=== PATIENT | male | born 1960 | race Hispanic/Latino ===

== ENCOUNTER 2017-04-24 06:10 | Observation (INO) | payer MEDICAID ==
[2017-04-16 09:07] VITALS: BMI 34.0
[2017-04-24] MEDS ORDERED: ceFAZolin IV 2 gm in Dextrose 0 GM/0 ML BAG IVPB ONE (07:20)
[2017-04-24] MEDS ORDERED: Lactated Ringer's 1,000 ML IV ONE ×7 (07:44→19:00)
[2017-04-24] MEDS: Lidocaine 1% Inj (20ml) ONE ×2 (07:45→08:06)
[2017-04-24] MEDS: Bupivacaine-Epi 0.25%-1:200,000 PF Inj ONE ×2 (07:45→08:06)
[2017-04-24] MEDS ORDERED: Midazolam 2 MG/2 ML VIAL ONE (07:47)
[2017-04-24] MEDS ORDERED: Rocuronium 10 mg/ml (5 ml) ONE ×3 (07:47→11:21)
[2017-04-24] MEDS ORDERED: White Petrolatum/Mineral Oil Ophth Oint(3.5 gm) ONE (07:47)
[2017-04-24] MEDS ORDERED: Propofol 10 mg/ml Inj (20 ML) ONE (07:47)
[2017-04-24] MEDS ORDERED: Vancomycin 1 gm/D5W 200 ml 1 GM/200 ML BAG IVPB ONE (08:19)
[2017-04-24] MEDS ORDERED: HYDROmorphone 0.5 mg/0.5 ml ISec IVP PRN ×3 (10:37→14:30)
[2017-04-24] MEDS ORDERED: Bupivacaine HCl 0.5% PF (10 ml) Inj ONE (12:04)
[2017-04-24] MEDS ORDERED: BUPIVACAINE 0.125%/0.9% NACL 600 ML IJ ONE (12:16)
[2017-04-24] MEDS ORDERED: Morphine 4 MG/ML VIAL ONE ×2 (13:51→14:19)
--- NOTE | 2017-04-24 14:46 | PCM.SURG1 ---
Surgeon's Initial Post Op Note - Surgeon's Notes Surgeon: Nicky Fire Prevention Inspector: PGY4 Type of Anesthesia: General Endo Pre-Operative Diagnosis: Recurrent incisional hernia, diastasis recti Operative Findings: Recurrent incisional hernia, diastasis recti Post-Operative Diagnosis: Recurrent incisional hernia, diastasis recti Operation Performed: Robotic assisted laparoscopic repair of recurrent incisional hernia with component separation Specimen/Specimens Removed: N/A Estimated Blood Loss: EBL {In ML}: 50 Blood Products Given: N/A Drains Used: Vikas Post-Op Condition: Good Date of Surgery/Procedure: 04/24/17 Time of Surgery/Procedure: 08:15
[2017-04-24] MEDS: Lactated Ringer's 1,000 ML IV SCH (23:30)
[2017-04-25] MEDS: Lactated Ringer's 1,000 ML IV SCH (04:04)
[2017-04-25 07:45] LABS: CHLORIDE 104 mmol/L (98-107); POTASSIUM 3.7 mmol/L (3.6-5.2); SODIUM 138 mmol/L (132-148)
[2017-04-25 07:48] LABS: BLOOD UREA NITROGEN 16 mg/dL (9-20); CARBON DIOXIDE 25 mmol/L (22-30); GFR AFRICAN-AMERICAN > 60
[2017-04-25 07:49] LABS: CALCIUM 8.5 mg/dl (8.6-10.4); GLUCOSE,RANDOM 107 mg/dL (75-110)
[2017-04-25 11:33] LABS: BASO % 0.3 % (0.0-2.0); EOS # 0.1 K/uL (0.0-0.7); EOS % 1.1 % (0.0-4.0); HEMATOCRIT 37.9 % (35.0-51.0); LYMPH # 1.8 K/uL (1.0-4.3); LYMPH % 23.7 % (20.0-40.0); MEAN CELL VOLUME 86.7 fL (80.0-94.0); MEAN CORPUSCULAR HEMOGLOBIN 29.8 pg (27.0-31.0); MEAN CORPUSCULAR HGB CONC 34.4 g/dL (33.0-37.0); MEAN PLATELET VOLUME 7.9 fL (7.2-11.7); MONO # 0.6 K/uL (0.0-0.8); MONO % 7.3 % (0.0-10.0); RED CELL DISTRIBUTION WIDTH 14.8 % (11.5-14.5); WHITE BLOOD COUNT 7.6 K/uL (4.8-10.8)
--- NOTE | 2017-04-25 21:43 | CP.PCM.PN ---
<Jerry Martinez - Last Filed: 04/25/17 21:39> Subjective - Date & Time of Evaluation Date of Evaluation: 04/25/17 Time of Evaluation: 14:00 - Subjective Subjective: SURGERY PROGRESS NOTE FOR DR. PRICE 56M seen and examined at bedside. Patient states pain is controlled, denies nausea, vomiting, fever, tolerating diet. ambulating. Objective - Vital Signs/Intake and Output Vital Signs (last 24 hours): Temp Pulse Resp BP Pulse Ox 98.1 F 94 H 20 132/87 99 04/25/17 15:30 04/25/17 15:30 04/25/17 15:30 04/25/17 17:44 04/25/17 15:30 Intake and Output: 04/25/17 04/26/17 18:59 06:59 Intake Total 200 Output Total 900 Balance -700 - Medications Medications: Current Medications Acetaminophen (Tylenol 325mg Tab) 975 mg PO Q8 [facility] Last Admin: 04/25/17 21:29 Dose: 975 mg Carvedilol (Coreg) 12.5 mg PO BID [facility] Last Admin: 04/25/17 17:44 Dose: 12.5 mg Heparin Sodium (Porcine) (Heparin) 5,000 units SC Q12 [facility] Last Admin: 04/25/17 21:29 Dose: 5,000 units Hydrochlorothiazide (Hydrodiuril) 25 mg PO DAILY [facility] Last Admin: 04/25/17 09:28 Dose: 25 mg BUPIVACAINE 0.125%/0.9% NACL (Bupivacaine-Ns 0.125% On-Q Tie Man) 600 mls @ 4 mls/ hr IJ ONCE ONE Stop: 04/30/17 18:15 Loratadine (Claritin) 10 mg PO DAILY [facility] Last Admin: 04/25/17 09:30 Dose: 10 mg Losartan Potassium (Cozaar) 100 mg PO DAILY [facility] Last Admin: 04/25/17 09:28 Dose: 100 mg Ondansetron HCl (Zofran Inj) 4 mg IVP Q4 PRN PRN Reason: Nausea/Vomiting Pneumococcal Polyvalent Vaccine (Pneumovax 23 Vaccine) 0.5 ml IM .ONCE ONE Stop: 04/26/17 10:01 Rosuvastatin Calcium (Crestor) 5 mg PO HS [facility] Last Admin: 04/25/17 21:29 Dose: 5 mg Sertraline HCl (Zoloft) 150 mg PO HS [facility] Last Admin: 04/25/17 21:29 Dose: 150 mg - Labs Labs: 04/25/17 11:18 04/25/17 06:39 - Constitutional Appears: Non-toxic, No Acute Distress - Respiratory Exam Respiratory Exam: Clear to Ausculation Bilateral, NORMAL BREATHING PATTERN - Cardiovascular Exam Cardiovascular Exam: REGULAR RHYTHM, +S1, +S2 - GI/Abdominal Exam GI & Abdominal Exam: Soft. absent: Distended, Firm, Guarding, Rigid, Tenderness Additional comments: dressing CDI. On-q ball in place. drain 162cc/24hrs serosang Assessment and Plan - Assessment and Plan (Free Text) Assessment: 56M s/p robotic incisional hernia repair POD1 Plan: - ADAT - Monitor incisions - DC alvarado -DVT/GI Ppx Discussed with Dr. Nicky Martinez, pGY2 <Michael Price - Last Filed: 04/28/17 18:30> Objective - Vital Signs/Intake and Output Vital Signs (last 24 hours): Temp Pulse Resp BP Pulse Ox 97.5 F L 84 17 130/71 95 04/26/17 07:10 04/26/17 07:10 04/26/17 07:10 04/26/17 09:07 04/26/17 07:10 - Labs Labs: 04/25/17 11:18 04/25/17 06:39 Attending/Attestation - Attestation I have personally seen and examined this patient.: Yes I have fully participated in the care of the patient.: Yes I have reviewed all pertinent clinical information, including history, physical exam and plan: Yes Notes (Text): 04/28/17 18:29 Pt was seen and examined at bedside Agree with above note and assessment Pt is s/p Robotic Component separation bilaterally and Incisional hernia repair and diastatis of recti repair OoB to walk DC plan
[2017-04-26 08:39] VITALS: PULSE 84; RESP 17; TEMP 97.5; O2SAT 95
--- NOTE | 2017-04-26 08:44 | CP.PCM.DIS ---
Provider - Provider Date of Admission: 04/24/17 14:31 Attending physician: Michael Saunders MD Time Spent in preparation of Discharge (in minutes): 40 Hospital Course - Lab Results Lab Results: Most Recent Lab Values WBC 7.6 K/uL (4.8-10.8) 04/25/17 11:18 RBC 4.37 Mil/uL (4.40-5.90) L 04/25/17 11:18 Hgb 13.0 g/dL (12.0-18.0) 04/25/17 11:18 Hct 37.9 % (35.0-51.0) 04/25/17 11:18 MCV 86.7 fL (80.0-94.0) 04/25/17 11:18 MCH 29.8 pg (27.0-31.0) 04/25/17 11:18 MCHC 34.4 g/dL (33.0-37.0) 04/25/17 11:18 RDW 14.8 % (11.5-14.5) H 04/25/17 11:18 Plt Count 207 K/uL (130-400) 04/25/17 11:18 MPV 7.9 fL (7.2-11.7) 04/25/17 11:18 Neut % (Auto) 67.6 % (50.0-75.0) 04/25/17 11:18 Lymph % (Auto) 23.7 % (20.0-40.0) 04/25/17 11:18 Nolan % (Auto) 7.3 % (0.0-10.0) 04/25/17 11:18 Eos % (Auto) 1.1 % (0.0-4.0) 04/25/17 11:18 Baso % (Auto) 0.3 % (0.0-2.0) 04/25/17 11:18 Neut # 5.1 K/uL (1.8-7.0) 04/25/17 11:18 Lymph # 1.8 K/uL (1.0-4.3) 04/25/17 11:18 Nolan # 0.6 K/uL (0.0-0.8) 04/25/17 11:18 Eos # 0.1 K/uL (0.0-0.7) 04/25/17 11:18 Baso # 0.0 K/uL (0.0-0.2) 04/25/17 11:18 Sodium 138 mmol/L (132-148) 04/25/17 06:39 Potassium 3.7 mmol/L (3.6-5.2) 04/25/17 06:39 Chloride 104 mmol/L (98-107) 04/25/17 06:39 Carbon Dioxide 25 mmol/L (22-30) 04/25/17 06:39 Anion Gap 12 (10-20) 04/25/17 06:39 BUN 16 mg/dL (9-20) 04/25/17 06:39 Creatinine 0.9 MG/DL (0.8-1.5) 04/25/17 06:39 Est GFR ( Amer) > 60 04/25/17 06:39 Est GFR (Non-Af Amer) > 60 04/25/17 06:39 Random Glucose 107 mg/dL (75-110) 04/25/17 06:39 Calcium 8.5 mg/dl (8.6-10.4) L 04/25/17 06:39 Blood Type O POSITIVE 04/24/17 06:50 Antibody Screen Negative 04/24/17 06:50 - Hospital Course Hospital Course: 56M presented to hospital for elective robotic incisional hernia repair. Operation was uneventful and patient tolerated post-op care well. Patients pain was controlled with On-Q anesthetic ball. Diet was advanced and patient tolerated. Patient did not require any opioid medication inpatient. Discharge Exam - Head Exam Head Exam: ATRAUMATIC - Respiratory Exam Respiratory Exam: Clear to PA & Lateral, NORMAL BREATHING PATTERN - Cardiovascular Exam Cardiovascular Exam: REGULAR RHYTHM, +S1, +S2 - GI/Abdominal Exam GI & Abdominal Exam: Soft. absent: Firm, Guarding, Rebound, Rigid, Tenderness Additional comments: Drain in place, serosanguinous output - Neurological Exam Neurological exam: Alert, Oriented x3 - Psychiatric Exam Psychiatric exam: Normal Affect, Normal Mood - Skin Skin Exam: Dry, Intact, Normal Color, Warm Discharge Plan - Follow Up Plan Condition: GOOD Disposition: HOME/ ROUTINE Instructions: Incisional Hernia (DC) Additional Instructions: 1) Please follow up with Dr. Saunders in 10 weeks upon discharge 2) Please take prescriptions as directed. Prescriptions have been sent to Dr. Saunders's office. 3) No heavy lifting 4) Can shower, but no bathing 5) Drain will be removed outpatient upon follow up Referrals: Michael Saunders MD [Staff Provider] -
[2017-04-26 09:09] VITALS: BP 130/71
[2017-04-26] MEDS ORDERED: Pneumococcal 23-Valent Vaccine IM ONE (10:00)
--- NOTE | 2017-04-29 04:05 | OP ---
PROCEDURE DATE: 04/24/2017 PREOPERATIVE DIAGNOSES: 1. Recurrent incisional hernia. 2. Diastasis of recti. 3. Morbid obesity. 4. Possible postoperative adhesion. POSTOPERATIVE DIAGNOSES: 1. Recurrent incisional hernia. 2. Diastasis of recti. 3. Morbid obesity. 4. Possible postoperative adhesion. PROCEDURES DONE: 1. Robotic bilateral component separation with transverse abdominis release bilaterally. 2. Robotic incisional hernia repair with mesh. 3. Robotic diastasis of recti repair with mesh. 4. Robotic extensive lysis of adhesion. 5. Robotic enterorrhaphy. 6. ON-Q pain catheter pump placement. 7. Removal of part of old mesh. SURGEON: Michael Saunders MD INORGANIC CHEMISTRY PROFESSOR: AGUSTINA Eisenberg and Chintan Begreron, PGY-4 resident. TYPE OF ANESTHESIA: General endotracheal tube anesthesia. ESTIMATED BLOOD LOSS: Around 50 mL. DRAINS: A 15-German Vikas drain was placed in the intramuscular compartment. COMPLICATIONS: None. PATHOLOGY: The part of the old mesh was sent for the pathology. INTRAOPERATIVE FINDINGS: The patient had extensive adhesion of the small bowel loop to the previously placed mesh as well as omentum and the colon to the anterior abdominal wall and the patient had large defect between the previous umbilical hernia repair and at the diastasis of recti. The patient also had large diastasis of recti of approximately 3 cm or more starting from the fifth sternum up to the umbilicus. On intraoperative steps, this 56-year-old male who was diagnosed with recurrent incisional hernia just above the previous robotic umbilical hernia repair and the patient also had a large diastasis of the recti and the patient is also morbidly obese. The patient was consented for the robotic component separation as well as incisional hernia repair and the diastasis of recti repair. DESCRIPTION OF PROCEDURE: The patient was brought to the OR, placed supine on the operating table. After induction of the anesthesia, the Daly catheter as well as NG tube was placed and the right upper quadrant 5-mm incision was made using the Visiport technique. Peritoneal cavity was entered, Pneumo was created and the first extensive lysis of adhesion was done with electroscope as well as with robot. The small bowel was firmly adhered to the previously placed mesh as well as to anterior abdominal wall. During the enterolysis, the serosal tear of the small bowel was identified and all the serosal tear of the small bowel approximately 5 to 6 cm length was repaired robotically with 3-0 Vicryl suture. Serosal tear was expected incidental occurrence due to firm adhesions. Now, the defect was identified and first right-sided dissection was done and the dissection was started at the edge of the hernial defect as well as at the posterior rectus sheath and the dissection was carried down in the retrorectus space. The linea semilunaris was identified and transverse abdominis muscle was also identified superiorly and the transverse abdominis muscle was divided medial to the neurovascular bundle and the transverse abdominis muscles as well as the fascia was divided completely all the way down from the costal margin up to the anterior superior iliac spine on the right side and the posterior rectus sheath was completely mobilized up to the flank. Now, the robot was undocked and the similar port was placed on the right side and the robot was docked on the right side to do the left side dissection. First, hernial edge incision was made, retrorectus dissection was done and dissection was carried down up to the linea semilunaris and transverse abdominis muscle superiorly. The transverse abdominis muscle was divided medial to the neurovascular bundle all the way top from the costal margin up to the anterior superior iliac spine and after that, the posterior rectus sheath was mobilized all the way down up to the left flank. Now, the old mesh was also firmly adhered and that was also divided and the previously placed Prolene suture was also taken out and now the reapproximation of defect was done starting from the lower abdominal wall approximately 5 cm below the umbilicus and the defect was closed in the midline with 0 Prolene. Now, the rectus abdominis muscles repair was closed with 0-PDS continuous suture in two layers. After repair of the incisional hernia as well as the repair of the diastasis of recti, approximately 35 x 15 cm large mesh was placed and mesh was then blunted and the mesh was tacked with tacker. After that, the posterior rectus sheath was closed in the midline and after that, the ON-Q pain catheter pump was placed and the catheter was positioned at the neurovascular bundle and a 19-German Vikas drain was placed in the intramuscular compartment and drain was secured to the skin. All the robotic camera port was taken out under vision and the Pneumo was deflated. The part of the old mesh was sent to the table for pathology. After that, all the port was sutured in one layer with 4-0 Monocryl and dry sterile dressing was applied. The patient tolerated the procedure well. Count of the instrument was correct. There was no apparent complication. The patient was extubated in OR, sent to the postanesthesia care unit in stable condition. Approximately 5 hours was taken to do this procedure completely. Michael Saunders MD MTDChiquita
== END 2017-04-26 15:07 | disposition home or self-care (01) ==
LOC: C.SDS 06:10 → C.9S 14:31 → C.6T 19:51
PROVIDERS: ADMIT Surgery Surgical Critical Care; ATTEND Surgery Surgical Critical Care
DX: K43.2 Incisional hernia without obstruction or gangrene (principal); K42.9 Umbilical hernia without obstruction or gangrene; E66.01 Morbid (severe) obesity due to excess calories
CPT/HCPCS: 36415; 49565; 49568; 49585; 80048; 85025; 86850; 86900; C1781; G0378; J1644; J2001; J2250; J2270; J2405; J2704; J3010; J3370; J7120

== ENCOUNTER 2017-05-06 11:27 | Emergency (ER) | payer MEDICAID ==
[2017-05-06 11:28] VITALS: BMI 34.0
[2017-05-06 11:37] VITALS: RESP 18; TEMP 98.5
--- NOTE | 2017-05-06 12:07 | C.PDOC ---
History Of Present Illness A 56 year old male, whose past medical history includes hiatal hernia, hypertension, hypercholesterolemia, fractures, and depression, presents to the emergency department for a umbilical hernia repair by Dr. Gillespie on and he wants to get he wound drainage tube removed today. The patient states he is scheduled to get the tube removed tomorrow at Dr. Gillespie's office, but he can not wait because he feels weak, feverish, and can not sleep. The patient denies any chest pain, shortness of breath, nausea, or any other complaints at this time. Time Seen by Provider: 05/06/17 11:40 Chief Complaint (Nursing): Wound Check History Per: Patient History/Exam Limitations: no limitations Quality Of Symptoms: Itching Past Medical History Vital Signs: Last Vital Signs Temp 98.5 F 05/06/17 14:33 Pulse 80 05/06/17 14:33 Resp 18 05/06/17 14:33 BP 124/66 05/06/17 14:33 Pulse Ox 99 05/06/17 14:38 - Medical History PMH: Depression, Fractures, Hiatal Hernia, HTN, Hypercholesterolemia Denies: Chronic Kidney Disease Surgical History: Endoscopy - [facility] Procedures INDIVID PSYCHOTHERAP NEC (02/11/13) OTHER GROUP THERAPY (02/11/13) Family History: States: No Known Family Hx - Social History Hx Alcohol Use: Yes (sober since January 2013) Hx Substance Use: No Review Of Systems Except As Marked, All Systems Reviewed And Found Negative. Constitutional: Positive for: Fever, Weakness Cardiovascular: Negative for: Chest Pain Respiratory: Negative for: Shortness of Breath Gastrointestinal: Negative for: Nausea Physical Exam - Physical Exam Appears: Well, No Acute Distress Skin: Normal Color, Warm, Dry Eye(s): bilateral: Normal Inspection, PERRL, EOMI Nose: Normal Throat: Normal Neck: Normal Cardiovascular: Rhythm Regular Respiratory: Normal Breath Sounds Gastrointestinal/Abdominal: Bowel Sounds, Soft, Tenderness, Other (Post operative scar from drainange that this erythematous ) Back: Normal Inspection Extremity: Normal ROM ED Course And Treatment - Laboratory Results Result Diagrams: 05/06/17 12:59 05/06/17 12:59 O2 Sat by Pulse Oximetry: 99 Medical Decision Making Medical Decision Making: Treatment Plan: -- CBC -- Labs -- IV Fluids, Vancomycin -- Saline Lock Progress Notes: Patient was seen by surgical scrub technologist, who discussed cased with Dr. Saunders and the patient will be admitted for IV antibiotic under Dr. Saunders service. Patient was started on Vanco IV, but he refused to be admitted and he refused to complete IV Vancomycin. Patient sts he wants to go home, requests Rx for antibiotic and sts he will f/u with in his office. Disposition - Disposition Referrals: Michael Saunders MD [Staff Provider] - Disposition: AGAINST MEDICAL ADVICE Disposition Time: 14:37 Condition: STABLE Additional Instructions: Follow up with your Surgeon within 1-2 days. Return to Ed immediately if feel worse. Prescriptions: Clindamycin [Cleocin] 300 mg PO Q6 #28 cap Instructions: Acute Wound Care (ED) Forms: [facility] (Mongolian) - Clinical Impression Clinical Impression: Infection of skin - Scribe Statement The provider has reviewed the documentation as recorded by the Scribe Sonali Hunter All medical record entries made by the Royal[employer] were at my direction and personally dictated by me. I have reviewed the chart and agree that the record accurately reflects my personal performance of the history, physical exam, medical decision making, and the department course for this patient. I have also personally directed, reviewed, and agree with the discharge instructions and disposition.
[2017-05-06] MEDS ORDERED: Sodium Chloride 0.9% 1,000 ML IV STA (12:38)
[2017-05-06] MEDS ORDERED: Vancomycin 1 GM 1 GM/250 ML BAG IV STA (12:39)
[2017-05-06 13:05] LABS: BASO # 0.1 K/uL (0.0-0.2); BASO % 0.8 % (0.0-2.0); EOS # 0.3 K/uL (0.0-0.7); EOS % 4.1 % (0.0-4.0); HEMATOCRIT 33.1 % (35.0-51.0); LYMPH # 1.6 K/uL (1.0-4.3); LYMPH % 19.5 % (20.0-40.0); MEAN CELL VOLUME 86.5 fL (80.0-94.0); MEAN CORPUSCULAR HGB CONC 33.5 g/dL (33.0-37.0); MEAN PLATELET VOLUME 7.3 fL (7.2-11.7); MONO # 0.4 K/uL (0.0-0.8); MONO % 5.3 % (0.0-10.0); RED CELL DISTRIBUTION WIDTH 14.5 % (11.5-14.5); WHITE BLOOD COUNT 8.1 K/uL (4.8-10.8)
[2017-05-06] MEDS ORDERED: Vancomycin 1 GM 1 GM/250 ML BAG IVPB ONE (13:12)
[2017-05-06 13:14] LABS: ALB/GLOB RATIO 0.9 (1.0-2.1); ALKALINE PHOSPHATASE 96 U/L (38-126); ALT/SGPT 29 U/L (21-72); AST/SGOT 21 U/L (17-59); BILIRUBIN,TOTAL 0.4 mg/dL (0.2-1.3); BLOOD UREA NITROGEN 20 mg/dL (9-20); CALCIUM 8.6 mg/dl (8.6-10.4); CARBON DIOXIDE 23 mmol/L (22-30); CHLORIDE 106 mmol/L (98-107); GFR AFRICAN-AMERICAN > 60; GLUCOSE,RANDOM 96 mg/dL (75-110); POTASSIUM 4.1 mmol/L (3.6-5.2); SODIUM 140 mmol/L (132-148); TOTAL PROTEIN 6.6 g/dL (6.3-8.3)
[2017-05-06 14:34] VITALS: BP 124/66; PULSE 80
[2017-05-06 14:38] VITALS: O2SAT 99
[2017-05-06] MEDS ORDERED: Piperacillin/Tazobact 3.375 GM in Sodium Chloride 100 ML IVPB SCH (15:30)
[2017-05-06] MEDS ORDERED: Clindamycin 300 MG in Sodium Chloride 0.9% 50 ML IVPB SCH (17:00)
[2017-05-07] MEDS ORDERED: Enoxaparin 40 mg Syringe SC SCH (10:00)
== END 2017-05-06 15:00 | disposition left against medical advice (07) ==
LOC: C.ER 11:27
DX: L08.89 Other specified local infections of the skin and subcutaneous tissue (principal)
CPT/HCPCS: 80053; 85025; 87040; 96365; 99284; J3370; J7040